=== PATIENT | female | born 1985 | race Caucasian/White ===

== ENCOUNTER 2016-08-12 19:36 | Emergency (ER) | payer MEDICAID, OTHER ==
[~2016-08-12] VITALS: Wt 76.5 kg
[2016-08-12] MEDS ORDERED: LIDOCAINE 1% (MDV) 20 ML INJ INJ STA (21:05)
--- NOTE | 2016-08-12 21:23 | ERD ---
ER Documentation Chief Complaint Date/Time DATE: 08/12/16 TIME: 21:21 Chief Complaint left knee laceration from hiking HPI 31 year old female fell during hiking onto a rock this afternoon and comes in with a left knee laceration. She had accidentally, fallen onto a small rock with a sharp edge. Pain is at the laceration site, described as sharp, no radiation of pain. She does not recall her last tetanus shot. ROS All systems reviewed and are negative except as per history of present illness. Allergies Allergies: Coded Allergies: No Known Allergy (Unverified , 08/12/16) PMhx/Soc Medical and Surgical Hx: pt denies Medical Hx, pt denies Surgical Hx Hx Alcohol Use: No Hx Substance Use: No Hx Tobacco Use: No Smoking Status: Never smoker Physical Exam Vitals Vital Signs Date Time Temp Pulse Resp B/P Pulse Ox O2 Delivery O2 Flow Rate FiO2 08/12/16 19:44 98.9 96 20 119/82 100 Physical Exam General: Well-developed, well-nourished. The patient appears in no acute distress. HEENT: Head is normocephalic, atraumatic. No scleral icterus. Neck: Supple. Nontender. Lungs: Clear to auscultation. Normal air movement. Heart: Regular rate and rhythm. S1 and S2 are normal. No murmurs, gallops, or rubs. Abdomen: nondistended Extremities: 3 cm transverse laceration at the left anterior knee. There is subcutaneous tissue exposed, no active bleeding, no foreign body seen. Patella tendon cannot be visualized. She has full range of motion, straight leg raise intact. Neurologic: Alert and oriented 3. No focal deficits. Skin: Normal turgor. No rash or lesions. Results 24 hrs Current Medications Medications (Trade) Dose Ordered Sig/Tobi Route PRN Reason Start Time Stop Time Status Last Admin Dose Admin Diphtheria/ Tetanus/Acell Pertussis (Adacel) 0.5 ml ONCE ONCE IM 08/12/16 21:30 08/12/16 21:31 DC 08/12/16 21:35 Lidocaine (Xylocaine 1% (Mdv) 20 ml) 20 ml ONCE STAT INJ 08/12/16 21:05 08/12/16 21:07 DC X-ray Knee 3V Interpreted by me as well as radiologist: Bones: No fracture Joints: No dislocation Foreign body: None Procedures/MDM ED course: Patient's tetanus was updated. Laceration Repair by me: Patient was verbally consented Anesthesia: 1% lidocaine locally, 5 cc Location: Left knee Tendon/Joint/Nerves: No injury Foreign body: None detected after copious irrigation and exploration Technique: Simple Interrupted Sutures 5 using 3-0 Ethilon Complexity: No subcutaneous sutures/mucosal repair/ edge excision Post Closure Length: 3 cm Patient's bleeding was easily controlled in the department and there is no indication of anemia. No evidence of compartment syndrome, neurologic injury, vascular injury, open joint, tendon laceration, or foreign body. Patient is appropriate for outpatient follow up. Patient's left knee was stressed, and Fer bandage was applied. Splint Assessment: Neurovascularly intact post splint placement with good fit. 48 hour wound check. Scar minimization instructions given. 31-year-old female presents with left knee laceration, there is no underlying fracture or foreign bodies. She is able to straight leg raise, and she has full range of motion. There is no evidence of a tendon rupture or tendon laceration, patient is follow-up for wound check in 2 days. She is placed in Fer bandage to restrict flexion to prevent dehiscence. Departure Diagnosis: Primary Impression: Laceration Condition: SALVADOR Pantoja PA-C Aug 12, 2016 21:23
[2016-08-12] MEDS ORDERED: DIPHTH/TET/ACEL PERTUSS (ADULT) 0.5 ML VIAL IM ONE (21:30)
--- NOTE | 2016-08-12 22:09 | RADRPT ---
PROCEDURE: XR Left Knee. CLINICAL INDICATION: Laceration. Trauma. Pain. TECHNIQUE: Three views of the left knee are available for review. COMPARISON: None available FINDINGS: There is no fracture. Joint relationships are maintained. Patella is unremarkable. Bone mineraliza tion is within normal limits. Soft tissues are unremarkable. There is no radiopaque foreign body. IMPRESSION: 1. No radiopaque foreign body.. 2. No acute fracture or dislocation is seen. RPTAT: HMVK .Jacob Ng MD, Date Time Electronically viewed and signed by .Jacob Ng MD, on 08/12/2016 22:09 .K/
== END 2016-08-12 23:09 | disposition home or self-care (01) ==
LOC: FTE 19:36
DX: S81.012A Laceration without foreign body, left knee, initial encounter (principal); W18.39XA Other fall on same level, initial encounter; Y92.9 Unspecified place or not applicable; Z23 Encounter for immunization
CPT/HCPCS: 12002; 73562; 90471; 90715; Z7502; Z7610

== ENCOUNTER 2016-08-15 15:56 | Emergency (ER) | payer OTHER ==
[~2016-08-15] VITALS: Wt 76.0 kg
--- NOTE | 2016-08-15 18:10 | ERD ---
ER Documentation Chief Complaint Date/Time DATE: 08/15/16 TIME: 18:05 Chief Complaint wound check on suture placed on knee HPI 31-year-old female presents to the emergency department for a wound check. Patient was seen at this emergency department 48 hours ago after sustaining a fall and laceration to her left knee from a rock. At that time the wound was irrigated and sutured without complication. Today patient states that she is feeling much better, is only experiencing minor pain when flexing her knee. She currently rates her pain a 0 out of 10. She has been taking Tylenol at home as needed for pain. Patient denies any fever, redness, intense pain, drainage, or trouble walking. Patient received a tetanus shot at the time of laceration repair. ROS All systems reviewed and are negative except as per history of present illness. Allergies Allergies: Coded Allergies: No Known Allergy (Unverified , 08/12/16) PMhx/Soc History of Surgery: No Anesthesia Reaction: No Hx Neurological Disorder: No Hx Respiratory Disorders: No Hx Cardiac Disorders: No Hx Psychiatric Problems: No Hx Miscellaneous Medical Probl: No Hx Alcohol Use: No Hx Substance Use: No Hx Tobacco Use: No Smoking Status: Never smoker Physical Exam Vitals Vital Signs Date Time Temp Pulse Resp B/P Pulse Ox O2 Delivery O2 Flow Rate FiO2 08/15/16 18:39 98.5 08/15/16 16:06 99.4 74 20 111/76 98 Physical Exam Const: Well-developed, well-nourished, nontoxic appearing, in no acute distress Head: Atraumatic Eyes: Normal Conjunctiva ENT: Normal External Ears, Nose and Mouth. Neck: Full range of motion..~ No meningismus. Resp: Clear to auscultation bilaterally Cardio: Regular rate and rhythm, no murmurs Abd: Soft, non tender, non distended. Normal bowel sounds Skin: No petechiae or rashes Back: No midline or flank tenderness Ext: 3 cm well-healed laceration to medial aspect of left anterior knee joint. 5 simple interrupted sutures intact. No evidence of joint swelling, erythema, drainage. No cyanosis, or edema. Sensation equal to bilateral lower extremities. Brisk capillary refill at distal lower extremity. Neur: Awake and alert Psych: Normal Mood and Affect Procedures/MDM 31-year-old otherwise healthy female presents to the emergency department for a 48 hour wound check. At this time patient's condition has improved. Patient's incision evaluated. 5 simple interrupted sutures intact along incision site. Patient is showing no evidence of joint or wound infection. There is no evidence of underlying fracture or foreign bodies. She is able to straight leg raise, and she has full range of motion. There is no evidence of a tendon rupture or tendon laceration. New dressing was applied by nursing staff. Crutches were ordered and given to patient per request from patient as she has experienced some pain when weightbearing. Scar minimization instructions given. Patient to return in 5 days for suture removal. Patient expressed understanding of and agreement with plan Based on patient's history of present illness and physical examination the decision was made to discharge. The patient was re-evaluated after ED treatment and stabilizing measures, and symptoms have improved. There is no evidence of life threatening injuries or illnesses at this time. On re-examination, patient resting in no distress, stable vital signs, reports feeling better and safe for discharge with outpatient follow up with PMD in 1-2 days. Patient given return precautions. PAT WOODWARD PA-C Aug 15, 2016 18:10
[2016-08-15 18:39] VITALS: TEMP 98.5
== END 2016-08-15 18:39 | disposition home or self-care (01) ==
LOC: FTE 15:56
DX: Z48.01 Encounter for change or removal of surgical wound dressing (principal)
CPT/HCPCS: 99282